=== PATIENT | female | born 1985 | race Caucasian/White ===

== ENCOUNTER 2019-01-02 17:19 | Observation (INO) ==
[2019-01-02] MEDS ORDERED: ALBUTEROL/IPRATROPIUM 3 ML NEB RESP TX STA (18:04)
[2019-01-02] MEDS ORDERED: ONDANSETRON 4 MG/2 ML VIAL IV STA (18:04)
[2019-01-02] MEDS ORDERED: KETOROLAC 30 MG/1 ML VIAL IV STA (18:04)
[2019-01-02] MEDS ORDERED: LEVOFLOXACIN INJ 750 MG in PREMIX 1 EACH IV STA (18:04)
[2019-01-02] MEDS ORDERED: methylPREDNISolone SOD SUC 125 MG/2 ML VIAL IV STA (18:04)
[2019-01-02 18:40] LABS: Basophils % 0.4 % (0.0-0.8); Eosinophils # 0.3 10*3/uL (0.0-0.87); Eosinophils % 3.5 % (0.00-10.9); Hemoglobin 9.4 GM/DL (12.0-16.0); Immature Granulocytes % 0.8 %; Immature Granulocytes Absolute 0.06 #; Lymphocytes # 1.5 10*3/uL (1.4-4.0); Lymphocytes % 20.4 % (21.3-54.2); Mean Corpuscular HGB Conc 30.3 GM/DL (32-36); Mean Corpuscular Volume 83.8 FL (87-102); Mean Platelet Volume 9.6 FL (9.6-12.0); Monocytes % 9.9 % (1.7-12.7); Platelet Count 472 T/CUMM (130-400); Red Cell Distribution Width 19.6 % (9.3-17.3); White Blood Count 7.4 T/CUMM (4-12)
[2019-01-02 18:48] LABS: INR 0.9; Partial Thromboplastin Time 33.2 SECS (20.8-36.0)
[2019-01-02 18:54] LABS: Apearance,Urine CLOUDY (Clear); Bacteria,Urine Occasional /HPF (Few); Bilirubin,Urine Negative (Negative); Blood, Urine Large mg/dL (Negative); Glucose,Urine (UA) Negative (Negative); Ketones,Urine Negative (Negative); Mucus,Urine Occasional /LPF (Occasional); Nitrite,Urine Negative (Negative); Protein,Urine 30 MG/DL; RBC,Urine 3 /HPF (0-4); Squamous Epithelial Cell,Urine Few /HPF (0-10); Urine Color Amber (Yellow); Urine Specific Gravity 1.021 (1.001-1.035); WBC,Urine 4 /HPF (0-6)
[2019-01-02] MEDS ORDERED: LEVOFLOXACIN INJ 100 ML IV ONE (19:00)
[2019-01-02 19:03] LABS: Alanine Aminotransferase 27 U/L (13-56); Albumin 3.1 G/DL (3.4-5.0); Alkaline Phosphatase 290 U/L (45-117); Aspartate Amino Transferase 35 U/L (0-37); Bilirubin,Total < 0.39 MG/DL (0.2-1.0); Blood Urea Nitrogen 9 MG/DL (7-18); Calcium 9.2 MG/DL (8.5-10.1); Estimated Glom Filtration Rate 98 ML/MIN; Glucose 93 MG/DL (74-106); Osmolality,Calculated 273.7 MOS/KG (273-304); Total Protein 8.3 G/DL (6.4-8.3)
[2019-01-02 19:12] LABS: Barbiturates Screen,Urine Positive (Negative); Benzodiazepines Screen,Urine Negative (Negative); Cannabinoid Screen,Urine Positive (Negative); Opiate Screen,Urine Negative (Negative); Phencyclidine Screen,Urine Negative (Negative)
[2019-01-02] MEDS ORDERED: fentaNYL 100 MCG/2 ML VIAL IV STA (19:12)
[2019-01-02] MEDS ORDERED: CIPROFLOXACIN 500 MG TABLET PO STA (20:08)
[2019-01-02] MEDS ORDERED: CIPROFLOXACIN 500 MG TABLET ONE (20:24)
[2019-01-02] MEDS ORDERED: ACETAMINOPHEN 500 MG TABLET PO ONE (21:40)
[2019-01-02] MEDS ORDERED: ONDANSETRON ODT 4 MG TABLET PO ONE (21:41)
[2019-01-02] MEDS ORDERED: BUTALBITAL/ACETAMIN/CAFFEINE 50-325-40 MG TABLET PO PRN (22:08)
[2019-01-02] MEDS ORDERED: PROMETHAZINE 25 MG/1 ML VIAL IM PRN (22:08)
[2019-01-02] MEDS ORDERED: ALBUTEROL 2.5 MG/3 ML NEB RESP TX PRN (22:08)
[2019-01-02] MEDS ORDERED: ACETAMINOPHEN 325 MG TABLET PO PRN (22:08)
[2019-01-02] MEDS ORDERED: DOCUSATE SODIUM 100 MG CAPSULE PO PRN (22:08)
[2019-01-02] MEDS ORDERED: NICOTINE 21 MG/24 HR PATCH TRANSDERM PRN (22:08)
[2019-01-02] MEDS ORDERED: PHENobarbital 30 MG TABLET PO SCH (22:08)
[2019-01-02] MEDS ORDERED: ENOXAPARIN 40 MG/0.4 ML SYRINGE SUBCUT SCH (22:30)
[2019-01-02] MEDS: DULoxetine 30 MG CAPSULE PO SCH (22:35)
[2019-01-02] MEDS: guaiFENesin/DM ER 600-30 MG TABLET PO SCH (22:35)
[2019-01-02] MEDS: ONDANSETRON 4 MG/2 ML VIAL IV PRN (22:53)
[2019-01-02] MEDS: QUEtiapine 100 MG TABLET PO SCH (23:54)
[2019-01-03] MEDS: ALBUTEROL/IPRATROPIUM 3 ML NEB RESP TX SCH ×3 (00:44→13:24)
[2019-01-03 05:41] LABS: Basophils % 0.2 % (0.0-0.8); Hematocrit 28.5 VOL% (35.7-47.0); Hemoglobin 8.5 GM/DL (12.0-16.0); Immature Granulocytes Absolute 0.05 #; Lymphocytes # 0.7 10*3/uL (1.4-4.0); Lymphocytes % 14.2 % (21.3-54.2); Mean Corpuscular HGB Conc 29.8 GM/DL (32-36); Mean Corpuscular Volume 84.8 FL (87-102); Mean Platelet Volume 9.8 FL (9.6-12.0); Monocytes % 4.3 % (1.7-12.7); Neutrophils % 80.3 % (38.7-73.9); Platelet Count 450 T/CUMM (130-400); Red Blood Count 3.36 MC/CUMM (3.8-5.5); Red Cell Distribution Width 19.4 % (9.3-17.3); White Blood Count 5.2 T/CUMM (4-12)
[2019-01-03 06:12] LABS: % Iron Saturation 5.1 % (18-50); Calcium 9.1 MG/DL (8.5-10.1); Ferritin 35.8 ng/ml (8-252); Osmolality,Calculated 275.7 MOS/KG (273-304)
[2019-01-03 06:17] LABS: Folate 19.3 NG/ML (5.4-24.0); Vitamin B12 302 PG/ML (211-911)
[2019-01-03 06:52] LABS: Sedimentation Rate-Westergren 116 MM/HR (0-20)
[2019-01-03] MEDS ORDERED: predniSONE 20 MG TABLET PO SCH (09:00)
[2019-01-03] MEDS: ONDANSETRON 4 MG/2 ML VIAL IV PRN ×2 (09:03→15:07)
[2019-01-03] MEDS: guaiFENesin/DM ER 600-30 MG TABLET PO SCH (09:04)
[2019-01-03] MEDS: DULoxetine 30 MG CAPSULE PO SCH (09:04)
[2019-01-03] MEDS: QUEtiapine 100 MG TABLET PO SCH (09:05)
[2019-01-03] MEDS: PHENobarbital 30 MG TABLET PO SCH ×2 (09:12→14:59)
[2019-01-03 10:44] LABS: Hemoglobin A1 (Alkaline) 97.4 % (96.5-98.5); Hemoglobin A2 (Alkaline) 2.6 % (1.5-3.5)
[2019-01-03 11:02] VITALS: BP 105/62
[2019-01-03] MEDS ORDERED: LEVOFLOXACIN INJ 750 MG in PREMIX 1 EACH IV SCH (18:00)
== END 2019-01-03 15:51 | disposition home or self-care (01) ==
LOC: N.EDINP 17:19 → N.ED 17:19 → N.2E 21:18
PROVIDERS: ADMIT Family Medicine; ATTEND Family Medicine

== ENCOUNTER 2019-05-01 22:19 | Inpatient (IN) ==
[2019-05-01 22:42] LABS: Basophils % 0.1 % (0.0-0.8); Hematocrit 34.9 VOL% (35.7-47.0); Hemoglobin 10.5 GM/DL (12.0-16.0); Immature Granulocytes % 0.7 %; Immature Granulocytes Absolute 0.12 #; Lymphocytes # 2.1 10*3/uL (1.4-4.0); Lymphocytes % 12.9 % (21.3-54.2); Mean Corpuscular HGB Conc 30.1 GM/DL (32-36); Mean Corpuscular Volume 83.3 FL (87-102); Mean Platelet Volume 9.8 FL (9.6-12.0); Monocytes % 5.1 % (1.7-12.7); NRBC # 0.02 10*3/uL; Neutrophils % 81.2 % (38.7-73.9); Platelet Count 357 T/CUMM (130-400); Red Blood Count 4.19 MC/CUMM (3.8-5.5); Red Cell Distribution Width 22.3 % (9.3-17.3); White Blood Count 16.6 T/CUMM (4-12)
[2019-05-01 23:07] LABS: Alanine Aminotransferase 12 U/L (13-56); Albumin 3.2 G/DL (3.4-5.0); Alkaline Phosphatase 104 U/L (45-117); Aspartate Amino Transferase 10 U/L (0-37); Bilirubin,Total < 0.39 MG/DL (0.2-1.0); Blood Urea Nitrogen 18 MG/DL (7-18); Calcium 8.8 MG/DL (8.5-10.1); Estimated Glom Filtration Rate 100 ML/MIN; Glucose 136 MG/DL (74-106); Osmolality,Calculated 280.5 MOS/KG (273-304); Total Protein 7.6 G/DL (6.4-8.3)
[2019-05-01] MEDS ORDERED: methylPREDNISolone SOD SUC 125 MG/2 ML VIAL IV STA (23:18)
[2019-05-01] MEDS ORDERED: MORPHINE 4 MG/1 ML VIAL IV STA (23:18)
[2019-05-01] MEDS ORDERED: ASPIRIN 325 MG TABLET PO STA (23:18)
[2019-05-01] MEDS ORDERED: ONDANSETRON 4 MG/2 ML VIAL IV STA (23:18)
[2019-05-01] MEDS ORDERED: cefTRIAXone 1,000 MG in SODIUM CHLORIDE 0.9% 100 ML IV STA (23:18)
[2019-05-01] MEDS ORDERED: ALBUTEROL/IPRATROPIUM 3 ML NEB RESP TX STA (23:18)
[2019-05-02] MEDS ORDERED: MAGNESIUM SULF RIDER 2 GM in PREMIX 1 EACH IV STA (00:15)
[2019-05-02] MEDS ORDERED: POTASSIUM CHLORIDE 20 MEQ TABLET PO STA (00:15)
[2019-05-02] MEDS ORDERED: ALUMINUM/MAGNES/SIMETH MAX STR 30 ML UDCUP PO PRN (01:22)
[2019-05-02] MEDS ORDERED: diphenhydrAMINE CAP 25 MG CAPSULE PO PRN (01:22)
[2019-05-02] MEDS ORDERED: hydrALAZINE 20 MG/1 ML VIAL IV PRN (01:22)
[2019-05-02] MEDS ORDERED: guaiFENesin/DM ER 600-30 MG TABLET PO PRN (01:22)
[2019-05-02] MEDS ORDERED: KETOROLAC 30 MG/1 ML VIAL IV STA (01:22)
[2019-05-02] MEDS: AZITHROMYCIN INJ 500 MG in SODIUM CHLORIDE 0.9% 250 ML IV SCH (03:29)
[2019-05-02] MEDS: ONDANSETRON 4 MG/2 ML VIAL IV PRN ×3 (03:30→23:46)
[2019-05-02 03:44] LABS: Anisocytosis 1+; Ovalocytes 1+; Platelet Estimate Normal; Target Cells Few; Tear Drop Cells Few
[2019-05-02 04:16] LABS: Apearance,Urine Slightly Hazy (Clear); Bacteria,Urine Occasional /HPF (Few); Blood, Urine Large mg/dL (Negative); Glucose,Urine (UA) 50 mg/dL (Negative); Ketones,Urine 5 mg/dL (Negative); Mucus,Urine Many /LPF (Occasional); Nitrite,Urine Negative (Negative); Protein,Urine 30 MG/DL; RBC,Urine 435 /HPF (0-4); Squamous Epithelial Cell,Urine Occasional /HPF (0-10); Urine Color Yellow (Yellow); Urine Specific Gravity 1.041 (1.001-1.035); WBC,Urine 4 /HPF (0-6)
[2019-05-02 04:19] LABS: Bilirubin,Urine Small mg/dL (Negative)
[2019-05-02] MEDS: NICOTINE 21 MG/24 HR PATCH TRANSDERM PRN (09:32)
[2019-05-02] MEDS: methylPREDNISolone SOD SUC 40 MG/1 ML VIAL IV SCH ×2 (09:34→21:27)
[2019-05-02] MEDS: PROMETHAZINE INJ 12.5 MG in SODIUM CHLORIDE 0.9% 50 ML IV PRN (12:11)
[2019-05-02] MEDS: ALBUTEROL/IPRATROPIUM 3 ML NEB RESP TX SCH ×3 (14:55→19:30)
[2019-05-02] MEDS: ACETAMINOPHEN 325 MG TABLET PO PRN (21:20)
[2019-05-03] MEDS: ALBUTEROL/IPRATROPIUM 3 ML NEB RESP TX SCH ×4 (00:28→20:17)
[2019-05-03] MEDS: PROMETHAZINE INJ 12.5 MG in SODIUM CHLORIDE 0.9% 50 ML IV PRN ×3 (05:29→21:57)
[2019-05-03] MEDS: cefTRIAXone 1,000 MG in SYRINGE 1 EACH IV SCH (09:55)
[2019-05-03] MEDS: AZITHROMYCIN INJ 500 MG in SODIUM CHLORIDE 0.9% 250 ML IV SCH (09:55)
[2019-05-03] MEDS: ONDANSETRON 4 MG/2 ML VIAL IV PRN ×2 (09:56→15:56)
[2019-05-03] MEDS: methylPREDNISolone SOD SUC 40 MG/1 ML VIAL IV SCH ×2 (09:56→21:59)
[2019-05-03] MEDS ORDERED: guaiFENesin/DM ER 600-30 MG TABLET PO SCH (10:16)
[2019-05-03] MEDS ORDERED: ALBUTEROL 2.5 MG/3 ML NEB RESP TX PRN (10:17)
[2019-05-03] MEDS: NICOTINE 21 MG/24 HR PATCH TRANSDERM PRN (11:03)
[2019-05-03] MEDS ORDERED: BENZONATATE 100 MG CAPSULE PO PRN (13:15)
[2019-05-03] MEDS ORDERED: MAGNESIUM SULF RIDER 4 GM in PREMIX 1 EACH IV PRN (15:05)
[2019-05-03] MEDS ORDERED: MAGNESIUM SULF RIDER 2 GM in PREMIX 1 EACH IV PRN (15:05)
[2019-05-03 18:47] LABS: Troponin I < 0.015 NG/ML (0.00-0.045)
[2019-05-04] MEDS: ONDANSETRON 4 MG/2 ML VIAL IV PRN ×3 (00:31→21:14)
[2019-05-04] MEDS: ALBUTEROL/IPRATROPIUM 3 ML NEB RESP TX SCH ×4 (00:57→19:37)
[2019-05-04 06:18] LABS: Basophils % 0.1 % (0.0-0.8); Hematocrit 31.9 VOL% (35.7-47.0); Hemoglobin 9.8 GM/DL (12.0-16.0); Lymphocytes # 1.5 10*3/uL (1.4-4.0); Lymphocytes % 7.4 % (21.3-54.2); Mean Corpuscular HGB Conc 30.7 GM/DL (32-36); Mean Corpuscular Volume 83.1 FL (87-102); Mean Platelet Volume 9.9 FL (9.6-12.0); Monocytes % 3.7 % (1.7-12.7); Neutrophils % 87.8 % (38.7-73.9); Platelet Count 317 T/CUMM (130-400); Red Blood Count 3.84 MC/CUMM (3.8-5.5); Red Cell Distribution Width 22.2 % (9.3-17.3); White Blood Count 19.6 T/CUMM (4-12)
[2019-05-04 06:47] LABS: Calcium 8.6 MG/DL (8.5-10.1); Osmolality,Calculated 277.7 MOS/KG (273-304)
[2019-05-04] MEDS: PROMETHAZINE INJ 12.5 MG in SODIUM CHLORIDE 0.9% 50 ML IV PRN ×3 (08:10→23:34)
[2019-05-04] MEDS: AZITHROMYCIN INJ 500 MG in SODIUM CHLORIDE 0.9% 250 ML IV SCH (08:43)
[2019-05-04] MEDS: methylPREDNISolone SOD SUC 40 MG/1 ML VIAL IV SCH ×2 (08:44→21:16)
[2019-05-04] MEDS: cefTRIAXone 1,000 MG in SYRINGE 1 EACH IV SCH (08:45)
[2019-05-04] MEDS: NICOTINE 21 MG/24 HR PATCH TRANSDERM PRN (12:05)
[2019-05-04] MEDS: BENZONATATE 100 MG CAPSULE PO PRN (16:07)
[2019-05-04] MEDS: BUDESONIDE 0.5 MG/2 ML NEB RESP TX SCH (19:37)
[2019-05-04] MEDS: QUEtiapine 100 MG TABLET PO SCH (23:16)
[2019-05-04] MEDS: busPIRone 15 MG TABLET PO SCH (23:16)
[2019-05-05] MEDS: ALBUTEROL/IPRATROPIUM 3 ML NEB RESP TX SCH ×4 (00:41→20:20)
[2019-05-05] MEDS: ONDANSETRON 4 MG/2 ML VIAL IV PRN ×3 (07:09→23:13)
[2019-05-05 07:15] LABS: Basophils % 0.1 % (0.0-0.8); Eosinophils # 0.1 10*3/uL (0.0-0.87); Eosinophils % 0.4 % (0.00-10.9); Hematocrit 30.7 VOL% (35.7-47.0); Hemoglobin 9.4 GM/DL (12.0-16.0); Immature Granulocytes % 1.3 %; Immature Granulocytes Absolute 0.19 #; Lymphocytes # 2.5 10*3/uL (1.4-4.0); Lymphocytes % 17.4 % (21.3-54.2); Mean Corpuscular HGB Conc 30.6 GM/DL (32-36); Mean Corpuscular Volume 82.5 FL (87-102); Mean Platelet Volume 10.1 FL (9.6-12.0); Monocytes % 5.4 % (1.7-12.7); NRBC # 0.05 10*3/uL; Neutrophils % 75.4 % (38.7-73.9); Platelet Count 323 T/CUMM (130-400); Red Blood Count 3.72 MC/CUMM (3.8-5.5); Red Cell Distribution Width 21.9 % (9.3-17.3); White Blood Count 14.3 T/CUMM (4-12)
[2019-05-05 07:20] LABS: Calcium 8.5 MG/DL (8.5-10.1); Osmolality,Calculated 273.8 MOS/KG (273-304)
[2019-05-05] MEDS: BUDESONIDE 0.5 MG/2 ML NEB RESP TX SCH ×2 (07:22→20:20)
[2019-05-05] MEDS ORDERED: QUEtiapine 100 MG TABLET PO SCH (09:00)
[2019-05-05] MEDS ORDERED: busPIRone 15 MG TABLET PO SCH (09:00)
[2019-05-05] MEDS ORDERED: PHENobarbital 30 MG TABLET PO SCH (09:00)
[2019-05-05] MEDS ORDERED: DULoxetine 30 MG CAPSULE PO SCH (09:00)
[2019-05-05] MEDS: QUEtiapine 100 MG TABLET PO SCH ×2 (09:24→20:04)
[2019-05-05] MEDS: DULoxetine 30 MG CAPSULE PO SCH ×2 (09:24→20:04)
[2019-05-05] MEDS: busPIRone 15 MG TABLET PO SCH ×2 (09:24→20:04)
[2019-05-05] MEDS: methylPREDNISolone SOD SUC 40 MG/1 ML VIAL IV SCH ×2 (09:26→20:05)
[2019-05-05] MEDS: PHENobarbital 30 MG TABLET PO SCH ×3 (09:26→20:04)
[2019-05-05] MEDS: cefTRIAXone 1,000 MG in SYRINGE 1 EACH IV SCH (09:40)
[2019-05-05] MEDS: AZITHROMYCIN INJ 500 MG in SODIUM CHLORIDE 0.9% 250 ML IV SCH (09:46)
[2019-05-05] MEDS: NICOTINE 21 MG/24 HR PATCH TRANSDERM PRN (10:30)
[2019-05-05] MEDS: PROMETHAZINE INJ 12.5 MG in SODIUM CHLORIDE 0.9% 50 ML IV PRN ×2 (11:29→20:50)
[2019-05-05] MEDS: BENZONATATE 100 MG CAPSULE PO PRN (14:37)
[2019-05-05] MEDS: ACETAMINOPHEN 325 MG TABLET PO PRN ×2 (16:37→23:06)
[2019-05-05] MEDS: BUDESONIDE/FORMOTEROL 160-4.5 INHALER 6 GM INH SCH (20:14)
[2019-05-06] MEDS: ALBUTEROL/IPRATROPIUM 3 ML NEB RESP TX SCH ×4 (00:20→19:23)
[2019-05-06] MEDS: BUDESONIDE 0.5 MG/2 ML NEB RESP TX SCH ×2 (07:25→19:23)
[2019-05-06] MEDS: QUEtiapine 100 MG TABLET PO SCH ×2 (08:26→21:26)
[2019-05-06] MEDS: PHENobarbital 30 MG TABLET PO SCH ×3 (08:26→21:25)
[2019-05-06] MEDS: DULoxetine 30 MG CAPSULE PO SCH ×2 (08:27→21:25)
[2019-05-06] MEDS: busPIRone 15 MG TABLET PO SCH ×2 (08:28→21:25)
[2019-05-06] MEDS: cefTRIAXone 1,000 MG in SYRINGE 1 EACH IV SCH (08:29)
[2019-05-06] MEDS: BUDESONIDE/FORMOTEROL 160-4.5 INHALER 6 GM INH SCH ×2 (08:29→21:26)
[2019-05-06] MEDS: methylPREDNISolone SOD SUC 40 MG/1 ML VIAL IV SCH ×2 (08:38→21:26)
[2019-05-06] MEDS: PROMETHAZINE INJ 12.5 MG in SODIUM CHLORIDE 0.9% 50 ML IV PRN ×2 (08:40→17:15)
[2019-05-06] MEDS: AZITHROMYCIN INJ 500 MG in SODIUM CHLORIDE 0.9% 250 ML IV SCH (09:26)
[2019-05-06] MEDS: ACETAMINOPHEN 325 MG TABLET PO PRN (12:06)
[2019-05-06] MEDS: ONDANSETRON 4 MG/2 ML VIAL IV PRN ×3 (12:06→21:27)
[2019-05-06] MEDS: NICOTINE 21 MG/24 HR PATCH TRANSDERM PRN (12:47)
[2019-05-06] MEDS: MAGNESIUM HYDROXIDE SUSP 30 ML UDCUP PO PRN (17:14)
[2019-05-06] MEDS: BENZONATATE 100 MG CAPSULE PO PRN (21:31)
[2019-05-07] MEDS: ALBUTEROL/IPRATROPIUM 3 ML NEB RESP TX SCH ×2 (00:36→08:55)
[2019-05-07] MEDS: PROMETHAZINE INJ 12.5 MG in SODIUM CHLORIDE 0.9% 50 ML IV PRN (04:43)
[2019-05-07] MEDS: ONDANSETRON 4 MG/2 ML VIAL IV PRN (08:11)
[2019-05-07] MEDS: BUDESONIDE 0.5 MG/2 ML NEB RESP TX SCH (08:55)
[2019-05-07] MEDS: DULoxetine 30 MG CAPSULE PO SCH (09:13)
[2019-05-07] MEDS: QUEtiapine 100 MG TABLET PO SCH (09:13)
[2019-05-07] MEDS: methylPREDNISolone SOD SUC 40 MG/1 ML VIAL IV SCH (09:14)
[2019-05-07] MEDS: busPIRone 15 MG TABLET PO SCH (09:14)
[2019-05-07] MEDS: PHENobarbital 30 MG TABLET PO SCH (09:15)
[2019-05-07] MEDS: BUDESONIDE/FORMOTEROL 160-4.5 INHALER 6 GM INH SCH (09:15)
[2019-05-07] MEDS: MAGNESIUM HYDROXIDE SUSP 30 ML UDCUP PO PRN (09:15)
[2019-05-07] MEDS: cefTRIAXone 1,000 MG in SYRINGE 1 EACH IV SCH (09:54)
[2019-05-07] MEDS: AZITHROMYCIN INJ 500 MG in SODIUM CHLORIDE 0.9% 250 ML IV SCH (09:54)
[2019-05-07 12:36] VITALS: BP 130/94
== END 2019-05-07 13:42 | disposition home or self-care (01) | DRG 140 ==
LOC: N.EDINP 22:19 → N.ED 22:19 → SUATTDRO 05-02 01:22 → N.2E 05-02 02:12
PROVIDERS: ADMIT Internal Medicine; ATTEND Emergency Medicine